=== PATIENT | female | born 1975 | race Caucasian/White ===

== ENCOUNTER 2018-05-19 12:44 | Inpatient (IN) ==
[2018-05-19] MEDS ORDERED: fentaNYL Citrate Inj 100 MCG/2 ML Ampul IV.PUSH ONE (13:32)
--- NOTE | 2018-05-19 13:57 | ED ---
HPI General Chief Complaint: Extremity Injury, Lower Stated Complaint: Fall Time Seen by Provider: 05/19/18 12:55 Source: patient and EMS Mode of arrival: EMS Limitations: no limitations History of Present Illness HPI Narrative: Patient is a 42-year-old female, past medical history significant for previous spinal surgery, who [place] the beach. She was skimboarding at the beach this morning when she slipped and fell. She fell onto her right hip and has since had extreme pain. She has not been able to walk since. She received a total of 10 mg of morphine en route with EMS and they report stable vital signs. She denies hitting her head, neck , back. She denies LOC. She denies pain outside of her hip/thigh region. complaint: hip injury Onset (ago): minute(s) Type of Injury: blunt Place: street/outdoors Severity: severe Relieving factors: nothing Exacerbating factors: movement Context: fall Other symptoms: none Related Data Home Medications Medication Instructions Recorded Confirmed No Known Home Medications 05/19/18 05/19/18 Allergies Allergy/AdvReac Type Severity Reaction Status Date / Time No Known Allergies Allergy Unverified 05/19/18 12:56 Review of Systems Except as stated in HPI: all other systems reviewed are negative Constitutional Denies frequent falls Eyes Denies blurry vision ENT Denies dizziness Cardiovascular Denies chest pain Respiratory Denies dyspnea Gastrointestinal Denies abdominal pain Genitourinary Denies flank pain Musculoskeletal Denies back pain, Reports deformity and Reports limited range of motion Integumentary/Breasts Denies rash Neurologic Denies numbness and Denies weakness Psychiatric Denies confusion [facility] Surgical History Surgical History Previous back surgery (Acute) Social History Social History Substance History: No History of Abuse Second Hand Smoke Exposure: No Smoking Status: Never smoker How Often Do You Have a Drink Containing Alcohol: Never Recent Travel in [facility] within the Last 8 Weeks: No Recent Out of Country Travel within the Last 8 Weeks: No Immunization History Tetanus Immunization: Unsure Hx Influenza Vaccine This Season: No Exam Narrative Exam Narrative: GENERAL: Patient lying on bed with right hip and knee flexed, abducted with internal rotation. Foot is being held up in the air with a sheet tied to an IV pole. SKIN: Focused skin assessment warm/dry. No lesions. HEAD: Atraumatic. Normocephalic. EYES: Pupils equal and round. No scleral icterus. No injection or drainage. ENT: No nasal bleeding or discharge. Mucous membranes pink and moist. NECK: Trachea midline. No JVD. CARDIOVASCULAR: Regular rate and rhythm. No murmur appreciated. Intact peripheral pulses RESPIRATORY: No accessory muscle use. Clear to auscultation. Breath sounds equal bilaterally. GASTROINTESTINAL: Abdomen soft, non-tender, nondistended. Hepatic and splenic margins not palpable. MUSCULOSKELETAL: No clubbing. No cyanosis. No edema. Deformity of the R hip/ thigh NEUROLOGICAL: Awake and alert. No obvious cranial nerve deficits. Able to wiggle toes. Normal speech. PSYCHIATRIC: Appropriate mood and affect; insight and judgment normal. Procedures Orthopedic Fracture Reduction Fracture #1: Time Out Performed: Yes Side: right Fracture Reduction Location: femur Analgesia: other (IV narcotic) Technique: direct manipulation Post Reduction X-rays Demonstrate: acceptable reduction Post-Reduction Neuro Exam: intact Post-Reduction Vascular Exam: intact Splint Applied: No (But placed in traction) Patient Tolerated Procedure: well Additional Comments: Procedure done with educational technician at bedside Course Hospital Course: Patient is a 42-year-old female who presents status post falling off a skim board at the beach. She describes excruciating pain of the right hip/thigh. Portable x-ray obtained shortly after arrival which shows a fracture of the right femur shaft. Orthopedic surgery and trauma surgery were then called. Reevaluation(s) Reevaluation #1: Patient states that she is starting to feel better but does have some continued pain. Time: 14:15 Reevaluation #2: Patient states her pain has improved. Orthopedic surgery asked that we place her in traction and obtain full length femur xrays. Dilaudid has been ordered for pain relief. Time: 15:03 Consultations Consultation #1: I spoke with the trauma surgeon whom recommends that the patient be admitted to his service if they must be admitted today. Time: 13:44 Consultation #2: Orthopedic surgeon oil exploration engineer, Dr Newman was paged several times, with no return phone call. The ED geotechnicial properties technician was able to get in touch with the orthopedic surgery service. They asked that we place her in traction and obtain full length femur xrays. On their review (again, through the geotechnicial properties technician's contact) they recommended admission with surgery tomorrow. Time: 15:03 Initial Documented Vital Signs Temperature 98.0 F 05/19/18 12:57 Pulse Rate 74 05/19/18 12:57 Respiratory Rate 20 05/19/18 12:57 Blood Pressure 132/83 05/19/18 12:57 Pulse Oximetry 98 05/19/18 12:57 Last Documented Vital Signs Temperature 98.0 F 05/19/18 12:57 Pulse Rate 60 05/19/18 16:00 Respiratory Rate 14 05/19/18 16:21 Blood Pressure 95/60 L 05/19/18 16:00 Pulse Oximetry 100 05/19/18 16:00 Medical Decision Making MDM Narrative Medical decision making narrative: Patient is a 42-year-old female, past medical history significant for previous spinal surgery, who presents with complaint of right hipthigh pain after she fell from a skateboard. She has deformity on exam. X-ray showed femur fracture. The hvac refrigeration technician spoke with orthopedic surgery whom asked that we reduce her, place her in traction, and obtain further films. She has been successfully reduced, and placed in traction. Differential Diagnosis Differential Diagnosis: Differential diagnosis includes but is not limited to hip dislocation, hip fracture, pelvic fracture, contusion. Medical Records Medical records reviewed: Yes I reviewed the patient's medical records. Lab Data Lab results reviewed: Yes I reviewed the patient's lab results. Lab results narrative: Labs unremarkable. Result diagrams: 05/19/18 14:00 05/19/18 14:00 Lab Results 05/19/18 05/19/18 05/19/18 Range/Units 14:00 14:00 14:00 WBC 8.7 (4.0-11.0) th/mm3 RBC 4.00 (4.00-5.30) mil/mm3 Hgb 12.5 (11.6-15.3) gm/dL Hct 37.2 (35.0-46.0) % MCV 92.8 (80.0-100.0) fL MCH 31.2 (27.0-34.0) pg MCHC 33.6 (32.0-36.0) % RDW 13.2 (11.6-17.2) % Plt Count 217 (150-450) th/mm3 MPV 9.9 (7.0-11.0) fL PT 11.0 (9.8-11.6) sec INR 1.1 Ratio APTT 21.7 L (24.3-30.1) sec Sodium 140 (136-145) meq/L Potassium 3.8 (3.5-5.1) meq/L Chloride 108 H (98-107) meq/L Carbon Dioxide 23.9 (21.0-32.0) meq/L Anion Gap 8 (5-15) meq/L BUN 15 (7-18) mg/dL Creatinine 0.87 (0.50-1.00) mg/dL Estimated GFR 71 L (>89) mL/min Random Glucose 105 (74-106) mg/dL Calcium 8.7 (8.5-10.1) mg/dL Imaging Data Attestation: I personally reviewed and interpreted this imaging study as follows : My impression: Right femoral shaft fracture with significant displacement. Radiologist's impression: Pelvis X-Ray 05/19/18 13:03 CONCLUSION: Complete light proximal femoral fracture probably intertrochanteric or below the intertrochanteric line with almost 90 degree of varus angulation. Femur X-Ray 05/19/18 15:21 CONCLUSION: Complete comminuted fracture below the intertrochanteric line on the right proximal femur. Discharge Plan Discharge Disposition Patient Disposition: 30 Still Patient Discharge Condition Condition: Stable Discharge Details Diagnosis: Fracture of femur Physicians Team ED Provider: Rupali Campbell Primary Care Provider: Primary Care Kiesha Cueto Attending Provider: Crow Hamilton Discharge Interventions Interventions: Vital Signs Last Done: 05/19/18 16:00 Status ED Status: Admitted Patient
[2018-05-19] MEDS ORDERED: Morphine Inj 4 MG/ML Vial IV.PUSH ONE (14:14)
--- NOTE | 2018-05-19 14:14 | XR ---
EXAM DATE: 05/19/2018 1:55 PM EDT AGE/SEX: 42 years / Female INDICATIONS: Right hip pain after falling off a hover board today. CLINICAL DATA: This is the patient's initial encounter. Patient reports that signs and symptoms have been present for 1 day and indicates a pain score of 10/10. MEDICAL/SURGICAL HISTORY: None. None. COMPARISON: No prior exams available for comparison. FINDINGS: There is a complete fracture of the right femur with almost 90 degrees of varus angulation and the ex act location and extent of the fracture is difficult to ascertain due to underpenetration and signifi cant soft tissue density may represent a large hematoma. CONCLUSION: Complete light proximal femoral fracture probably intertrochanteric or below the intertrochanteric li ne with almost 90 degree of varus angulation. Electronically signed by: Kenzie Sims MD 05/19/2018 2:13 PM EDT
[2018-05-19 14:18] LABS: Hematocrit 37.2 % (35.0-46.0); Hemoglobin 12.5 gm/dL (11.6-15.3); Mean Corpuscular HGB Conc 33.6 % (32.0-36.0); Mean Corpuscular Hemoglobin 31.2 pg (27.0-34.0); Mean Corpuscular Volume 92.8 fL (80.0-100.0); Mean Platelet Volume 9.9 fL (7.0-11.0); Platelet Count 217 th/mm3 (150-450); Red Cell Distribution Width 13.2 % (11.6-17.2); White Blood Count 8.7 th/mm3 (4.0-11.0)
[2018-05-19 14:30] LABS: Activated Partial Thrombo Time 21.7 sec (24.3-30.1); INR 1.1 Ratio
[2018-05-19 14:35] LABS: Calcium 8.7 mg/dL (8.5-10.1); Carbon Dioxide 23.9 meq/L (21.0-32.0); Potassium 3.8 meq/L (3.5-5.1)
[2018-05-19] MEDS ORDERED: HYDROmorphone PF Inj 1 MG/ML Ampul IV.PUSH ONE (14:58)
[2018-05-19] MEDS ORDERED: HYDROmorphone PF Inj 2 MG/ML Vial ONE (15:01)
[2018-05-19] MEDS ORDERED: Bisacodyl 10 MG Supp RECTAL PRN (16:07)
[2018-05-19] MEDS ORDERED: Post-op Orders (for Pharmacy) OTHER ONE (16:07)
[2018-05-19] MEDS ORDERED: Naloxone Inj 0.4 MG/ML Vial IV.PUSH PRN (16:07)
[2018-05-19] MEDS ORDERED: Enoxaparin Inj 40 MG/0.4 ML Syringe SQ SCH (16:15)
[2018-05-19] MEDS ORDERED: Sod Chloride 0.9% Inj 1,000 ML IV.CONT SCH (16:15)
--- NOTE | 2018-05-19 16:21 | MH ---
cc: Crow Hamilton MD DATE OF ADMISSION: 05/19/2018 HISTORY OF PRESENT ILLNESS: This 42-year-old female was on the beach on some sort of a surfboard and broke her right femur. She was transferred to our institution, worked up in the emergency room and found to have midshaft closed femur fracture; hence, the admission. PAST MEDICAL AND SURGICAL HISTORY: Severe kyphoscoliosis, for which the patient had Banuelos rods placed as a child. MEDICATIONS: No medications. ALLERGIES: NO ALLERGIES AT THIS TIME. PHYSICAL EXAMINATION: GENERAL: Reveals a pleasant 42-year-old lady in no acute distress. HEENT: Normocephalic. No trauma to the head. Pupils equal, reactive. Extraocular muscles intact. NECK: Supple. Bilateral carotid pulses. No bruit. CHEST: Clear with bilateral breath sounds. HEART: Regular rate and rhythm. ABDOMEN: Soft, active bowel sounds. No rebound, no guarding, no masses. BACK: Normal. The patient has scars from previous surgery. EXTREMITIES: The patient has bilateral femoral, popliteal, dorsalis pedis and posterior tibial pulses; bilateral brachial, ulnar and radial pulses. IMPRESSION AND PLAN: A mid shaft femur fracture, which is closed and partially reduced by suspension, to the operating room today for femur fracture fixation. The patient will probably stay in the hospital for a few days. MD CHRISTOPHER Alvarez/MEHRAN , 04:07 PM , 04:21 PM
--- NOTE | 2018-05-19 16:31 | XR ---
EXAM DATE: 05/19/2018 4:00 PM EDT AGE/SEX: 42 years / Female INDICATIONS: Patient complains of right hip/femur pain. CLINICAL DATA: This is the patient's initial encounter. Patient reports that signs and symptoms have been present for 1 day and indicates a pain score of 9/10. MEDICAL/SURGICAL HISTORY: None. None. COMPARISON: No prior exams available for comparison. FINDINGS: There is a complete fracture of the right proximal femur appears to be under the intertrochanteric li ne with avulsed fragments medially and there is superior riding of the distal fragment and varus angu lation. CONCLUSION: Complete comminuted fracture below the intertrochanteric line on the right proximal femur. Electronically signed by: Kenzie Sims MD 05/19/2018 4:30 PM EDT
[2018-05-19] MEDS: Senna/Docusate Sodium 8.6/50 MG Tablet PO SCH (21:20)
[2018-05-19] MEDS: HYDROmorphone PF Inj 2 MG/ML Vial IV.PUSH PRN (23:45)
[2018-05-19] MEDS: Sod Chloride 0.9% Inj 1,000 ML IV.CONT SCH (23:49)
[2018-05-20] MEDS ORDERED: Metoprolol Tartrate 25 MG Tablet PO SCH (03:15)
[2018-05-20] MEDS ORDERED: Chlorhexidine Gluconate 2% 1 Pack (2 Cloths) TOPICAL SCH (03:15)
[2018-05-20] MEDS: Sod Chloride 0.9% Inj 1,000 ML IV.CONT SCH (03:30)
[2018-05-20] MEDS: HYDROmorphone PF Inj 2 MG/ML Vial IV.PUSH PRN (03:55)
[2018-05-20] MEDS ORDERED: Sodium Chlor 0.9% Inj 500 ML IV.SIG SCH (04:00)
[2018-05-20 06:31] LABS: Baso % (Auto) 0.4 % (0.0-2.0); Eos % (Auto) 0.4 % (0.0-4.0); Hematocrit 32.8 % (35.0-46.0); Hemoglobin 11.1 gm/dL (11.6-15.3); Lymph # (Auto) 1.3 th/mm3 (1.0-4.8); Mean Corpuscular HGB Conc 33.9 % (32.0-36.0); Mean Corpuscular Hemoglobin 31.2 pg (27.0-34.0); Mean Corpuscular Volume 91.9 fL (80.0-100.0); Mean Platelet Volume 9.7 fL (7.0-11.0); Mono # (Auto) 0.7 th/mm3 (0.0-0.9); Mono % (Auto) 8.1 % (0.0-8.0); Neut # (Auto) 7.1 th/mm3 (1.8-7.7); Neut % (Auto) 77.1 % (16.0-70.0); Platelet Count 176 th/mm3 (150-450); Red Blood Count 3.57 mil/mm3 (4.00-5.30); White Blood Count 9.2 th/mm3 (4.0-11.0)
[2018-05-20 06:51] LABS: Calcium 8.3 mg/dL (8.5-10.1); Carbon Dioxide 23.8 meq/L (21.0-32.0); Potassium 3.8 meq/L (3.5-5.1)
--- NOTE | 2018-05-20 06:56 | P.PNOP ---
Subjective Interval history: Visiting with family from [place]. Tried to use sun skin board. She had a slip and fall and had significant right hip injury and pain. No other complaints Physical Exam Vital signs: Vital Signs 05/19/18 12:57 05/19/18 14:00 05/19/18 14:25 Temperature 98.0 F Pulse Rate 74 77 Respiratory Rate 20 18 14 Blood Pressure 132/83 125/73 Pulse Oximetry 98 100 05/19/18 15:00 05/19/18 16:00 05/19/18 16:21 Temperature Pulse Rate 82 60 Respiratory Rate 20 21 14 Blood Pressure 134/75 95/60 L Pulse Oximetry 100 100 05/19/18 17:00 05/19/18 19:08 05/19/18 23:38 Temperature 98.1 F 98.5 F Pulse Rate 63 75 73 Respiratory Rate 16 18 18 Blood Pressure 116/65 139/81 124/78 Pulse Oximetry 100 100 98 05/20/18 04:14 Temperature 99.2 F Pulse Rate 75 Respiratory Rate 17 Blood Pressure 105/61 Pulse Oximetry 97 Intake & Output 05/19/18 05/19/18 05/20/18 06:59 18:59 06:59 Intake Total 360 / 360 Output Total 450 / 450 Balance -90 / -90 Weight 52.16 kg 52.16 kg Intake: Oral 360 / 360 Output: Urine 450 / 450 Stool 0 / 0 Other: Date of Last Bowel Movement 05/18/18 05/18/18 Weight On Admission 52.16 kg Narrative: Right lower extremity: Pain to palpation of hip. No pain in his knee or ankle. She is in Cummings's traction with active dorsiflexion plantar flexion foot. She has intact distal pulses and sensation Left lower extremity: Full range of motion neurovascularly intact Bilateral upper extremities: Full range of motion and neurovascularly intact Results - Labs CBC & Chem 7: 05/20/18 05:28 05/20/18 05:28 Laboratory Results - last 24 hr 05/19/18 05/19/18 05/19/18 14:00 14:00 14:00 WBC 8.7 RBC 4.00 Hgb 12.5 Hct 37.2 MCV 92.8 MCH 31.2 MCHC 33.6 RDW 13.2 Plt Count 217 MPV 9.9 Neut % (Auto) Lymph % (Auto) [place] % (Auto) Eos % (Auto) Baso % (Auto) Neut # (Auto) Lymph # (Auto) [place] # (Auto) Eos # (Auto) Baso # (Auto) WBC Differential Differential Comment PT 11.0 INR 1.1 APTT 21.7 L Sodium 140 Potassium 3.8 Chloride 108 H Carbon Dioxide 23.9 Anion Gap 8 BUN 15 Creatinine 0.87 Estimated GFR 71 L Random Glucose 105 Calcium 8.7 05/20/18 05/20/18 05:28 05:28 WBC 9.2 RBC 3.57 L Hgb 11.1 L Hct 32.8 L MCV 91.9 MCH 31.2 MCHC 33.9 RDW 13.0 Plt Count 176 MPV 9.7 Neut % (Auto) 77.1 H Lymph % (Auto) 14.0 [place] % (Auto) 8.1 H Eos % (Auto) 0.4 Baso % (Auto) 0.4 Neut # (Auto) 7.1 Lymph # (Auto) 1.3 [place] # (Auto) 0.7 Eos # (Auto) 0.0 Baso # (Auto) 0.0 WBC Differential . Differential Comment Auto diff final PT INR APTT Sodium 140 Potassium 3.8 Chloride 106 Carbon Dioxide 23.8 Anion Gap 10 BUN 14 Creatinine 0.73 Estimated GFR 87 L Random Glucose 94 Calcium 8.3 L - Imaging Impressions Pelvis X-Ray 05/19/18 13:03 CONCLUSION: Complete light proximal femoral fracture probably intertrochanteric or below the intertrochanteric line with almost 90 degree of varus angulation. Femur X-Ray 05/19/18 15:21 CONCLUSION: Complete comminuted fracture below the intertrochanteric line on the right proximal femur. Assessment and Plan - Assessment and Plan Right subtrochanteric femur fracture. N.p.o. Surgery this morning for intramedullary nail fixation. Signed consents.
--- NOTE | 2018-05-20 07:22 | MB ---
cc: Allan Newman MD DATE: 05/20/2018 REASON FOR CONSULTATION: Right proximal femur fracture. HISTORY OF PRESENT ILLNESS: Ms. Nichols is a 42-year-old female who is visiting family. She was at the beach, using a skim board. She lost her balance and fell. She landed on her right side. She had immediate right hip and leg pain. She was unable to stand or ambulate. She presented to the Emergency Room, where x-rays revealed a displaced right proximal femur fracture. She is currently awake and on the orthopedic floor. Her only complaint is her right leg. Pain is worse with movement and is improved with rest. She denies dizziness, syncope or loss of consciousness. She describes a mechanical fall. PAST MEDICAL HISTORY, ILLNESSES: Scoliosis. MEDICATIONS: No home medications. ALLERGIES: NONE. PAST SURGICAL HISTORY: Placement of Banuelos rods in her spine for scoliosis as a child. SOCIAL HISTORY: The patient lives in [place]. She is here visiting on vacation. She denies alcohol, tobacco or drug abuse. FAMILY HISTORY: Noncontributory. REVIEW OF SYSTEMS: The patient denies fevers, chills, weight loss, headache, visual changes, hearing loss, chest pain, palpitations, shortness of breath, nausea, vomiting, urinary changes, diarrhea, bowel changes, neck pain, back pain, skin rashes, weakness, numbness of extremities, anxiety or depression. She complains of right hip pain. The pain is worse with movement. LABORATORY DATA: The patient has a white blood cell count of 9.2, hematocrit of 32.8, platelet count of 176, INR of 1.1, potassium of 3.8. X-RAYS: X-rays of right hip and femur were reviewed. X-rays reveal a displaced right hip intertrochanteric fracture. PHYSICAL EXAMINATION: GENERAL: The patient is a pleasant 42-year-old female. She is awake and alert. She is alert and oriented x3. She is in no acute distress. She appears well-developed and well-nourished. VITAL SIGNS: Temperature 99.2, pulse 75, respirations 17, blood pressure 105/61, O2 saturations 97% on room air. HEAD: The patient is normocephalic. Pupils are equal. NECK: Supple, nontender. Trachea is in the midline. ABDOMEN: Soft, nontender, nondistended. EXTREMITIES: Examination of bilateral lower extremities reveals no significant pain. Examination of left leg reveals no pain with hip, knee or ankle motion. Skin is intact. Dorsalis pedis pulses palpable. Sensation is intact. Examination of right leg reveals pain with any hip motion. Her right leg is shortened and externally rotated. She has no tenderness of her knee, tibia or ankle. Skin is intact. Dorsalis pedis pulses palpable. IMPRESSION: Displaced right hip intertrochanteric fracture secondary to fall at the beach. PLAN: Treatment options were discussed with the patient. At this point, I would recommend right hip reduction with intramedullary nail fixation. Risks of surgery include bleeding, infection, injuries to arteries, nerves and blood vessels; nonunion, malunion, painful hardware, as well as medical complications including blood clot, stroke, heart attack and . All questions were answered. Will plan on surgery today. A mid-level provider in my office, nurse practitioner or PA, may see this patient on a follow-up basis and continue to implement the objective of this plan including: Starting or adjusting medications, injections of muscle, tendon, bursa or joints, cast application, orthotic or brace application, physical therapy, further radiographic studies including x-ray, MRI, CT, ultrasounds or bone scan, vascular studies, neurologic studies, or other specialist consultations, and proceeding with surgical management as appropriate. MD JACK Jorgensen/BELKYS , 06:59 AM , 07:20 AM
[2018-05-20] MEDS ORDERED: Bupivacaine/Epinephrine Inj 0.25% 50 ML Vial ONE (07:38)
[2018-05-20] MEDS ORDERED: Morphine Inj 4 MG/ML Vial IV.PUSH PRN (08:40)
[2018-05-20] MEDS ORDERED: Post-op Orders (for Pharmacy) OTHER STA (08:40)
--- NOTE | 2018-05-20 08:47 | P.OP ---
- Preoperative Diagnosis (1) Closed intertrochanteric fracture of right hip Date of procedure: 05/20/18 Procedure: Reduction and intramedullary nail fixation right intertrochanteric femur fracture Anesthesia: GETA Surgeon: Allan Rodriguez MD Braille Proofreader: SHILO Garcia PA-C The surgical procedure was assisted by my physician religious assistant. My P.A. presence was necessary throughout this case for the manipulation and positioning of the surgical extremity. My P.A. was assisting me throughout the duration of this procedure. The skill set of a physician religious assistant was medically necessary to complete this procedure. During the surgical case the surgical supply assistant was working at the back table and the physician religious assistant was directly assisting me. Operation and Findings: Implants used: [9]mm x [360]mm troch nail Plan of activity: 50% weightbearing right leg Patient was seen and evaluated preoperatively. The patient has significant hip pain from proximal femur fracture. The risk and benefits of surgery were discussed in depth with the patient to include bleeding, infection, nonunion, malunion, need for hip replacement, painful hardware, as well as medical competitions including blood clots, stroke, heart attack, and . Informed consent was obtained. Operative site was marked. Patient was brought to the operating room and placed on fracture table. IV sedation was administered by anesthesiologist. Timeout procedure was performed. Hip and leg were prepped with alcohol followed by DuraPrep and draped in the usual sterile fashion. IV antibiotics were given prior to incision. Procedure began with reduction of fracture. Traction was applied. The leg was manipulated to achieve reduction. Multiple attempts were made reduction. I was unable to achieve appropriate reduction. A 4 inch incision was made lateral to the intertrochanteric region. Iliotibial band was split in line with fibers. Vastus lateralis muscle was elevated anteriorly. Fracture site was visualized. Fracture is now mainly reduced. Fracture keyed in excellent alignment. Using appropriate cable passer, a cable was passed around the fracture site. The fracture was gently compressed with the cable. The cable was tensioned, crimped, and cut appropriately. Excellent reduction was achieved. Fluoroscopy was used to confirm reduction. A three inch incision was made proximal to the trochanter. Subcutaneous tissue was dissected bluntly. Guidepin was placed at the tip of the trochanter and advanced into the femoral canal. Fluoroscopy confirmed appropriate guidepin placement. A opening reamer was placed over the guidepin. A long ball tipped guide pin was now placed down the femoral canal into the center of the distal femur. The nail length was now measured. Fluoroscopy confirmed appropriate guidepin placement. Flexible reamers were now passed over the guidepin to ream the intramedullary canal. The nail was attached to the insertion handle. Nail was now placed over the guidepin into the femoral canal. Fluoroscopy confirmed appropriate nail placement. A second incision was made over the lateral thigh. Cannulas were placed through the insertion handle down to the femur. Guidepin was now placed through the femoral nail into the center of the femoral head. Fluoroscopy confirmed appropriate guidepin placement. Screw length was measured. Cannulated drill was placed over the guidepin. Appropriate length lag screw was now placed. Traction was released and compression was applied. The set screw was now tightened in dynamic mode. Next, using perfect table mountain technique two distal interlocking screws were placed. Screw holes were predrilled and screw lengths were measured. Final fluoroscopy revealed well aligned fracture with well-placed hardware. Incision was closed with 3-0 Vicryl and mayela. Sterile dressings were applied. Patient was awakened and transferred to recovery room.
[2018-05-20] MEDS ORDERED: fentaNYL Citrate Inj 100 MCG/2 ML Ampul ONE (09:03)
[2018-05-20] MEDS ORDERED: *morphine SULFATE 10 MG/ML PERIprocedure ONLY ONE ×2 (09:16→09:31)
[2018-05-20] MEDS: Senna/Docusate Sodium 8.6/50 MG Tablet PO SCH ×2 (10:49→20:13)
[2018-05-20] MEDS: Calcium/Vitamin D 250/125 MG Tablet PO SCH ×3 (10:49→19:18)
[2018-05-20] MEDS ORDERED: Phenylephrine/NS 1000 MCG/10ML Syringe IV.PUSH ONE (12:00)
[2018-05-20] MEDS ORDERED: Sodium Chlor 0.9% Inj 250 ML IV.SIG ONE (12:00)
[2018-05-20] MEDS ORDERED: Glycopyrrolate Inj 1 MG/5 ML Syringe IV.PUSH ONE (12:00)
[2018-05-20] MEDS ORDERED: Lidocaine PF 1% Inj 5 ML Syringe INFILTRATN ONE (12:00)
[2018-05-20] MEDS ORDERED: Neostigmine Inj 5 MG/5 ML Syringe IV.PUSH ONE (12:00)
--- NOTE | 2018-05-20 13:02 | P.PNGS ---
Subjective Interval history: OR today for right femur repair Physical Exam Vital signs: Vital Signs 05/19/18 14:00 05/19/18 14:25 05/19/18 15:00 Temperature Pulse Rate 77 82 Respiratory Rate 18 14 20 Blood Pressure 125/73 134/75 Pulse Oximetry 100 100 05/19/18 16:00 05/19/18 16:21 05/19/18 17:00 Temperature Pulse Rate 60 63 Respiratory Rate 21 14 16 Blood Pressure 95/60 L 116/65 Pulse Oximetry 100 100 05/19/18 19:08 05/19/18 23:38 05/20/18 04:14 Temperature 98.1 F 98.5 F 99.2 F Pulse Rate 75 73 75 Respiratory Rate 18 18 17 Blood Pressure 139/81 124/78 105/61 Pulse Oximetry 100 98 97 05/20/18 08:57 05/20/18 09:00 05/20/18 09:15 Temperature 97.6 F Pulse Rate 96 H 82 75 Respiratory Rate 17 15 15 Blood Pressure 116/64 107/64 111/63 Pulse Oximetry 96 96 96 05/20/18 09:30 05/20/18 09:45 Temperature 97.6 F Pulse Rate 69 69 Respiratory Rate 14 17 Blood Pressure 115/68 111/63 Pulse Oximetry 97 95 Intake & Output 05/19/18 05/20/18 05/20/18 18:59 06:59 18:59 Intake Total 360 / 360 1000 / 1000 Output Total 450 / 450 300 / 300 Balance -90 / -90 700 / 700 Weight 52.16 kg 52.16 kg Intake: Oral 360 / 360 Anesthesia Amount 1000 / 1000 Output: Urine 450 / 450 Stool 0 / 0 Estimated Blood Loss 100 / 100 Urine Amount (Catheter) 200 / 200 Indwelling Urethral Catheter 200 / 200 Other: Date of Last Bowel Movement 05/18/18 05/18/18 Weight On Admission 52.16 kg Narrative: GENERAL: 42 year old well-nourished, well developed female lying in bed. SKIN: Warm and dry. HEAD: Normocephalic. EYES: Pupils equal and round. No scleral icterus. ENT: No nasal bleeding or discharge. Mucous membranes pink and moist. NECK: Trachea midline. No JVD. CARDIOVASCULAR: Regular rate and rhythm. RESPIRATORY: No accessory muscle use. Lungs clear to auscultation. Breath sounds equal bilaterally. GASTROINTESTINAL: Abdomen soft, non-tender, nondistended. + BS. MUSCULOSKELETAL: Extremities without cyanosis, or edema. RLE bucks traction in place. MAEW, + perfused NEUROLOGICAL: Awake and alert. Normal speech. - Urinary Catheter Management Indwelling Urethral Catheter Cath placed during this visit: no Reason for continuing: Other continuation reason Straight Cath placed during this visit: yes, but has since been removed by the nurse Reason for continuing: Not indwelling catheter Insertion date: 05/22/18 Insertion time: 13:00 Removal date: 05/22/18 Removal time: 13:30 Assessment and Plan - Plan [place]: [place] No LOC. INJURIES: RIGHT femur fx PMHx: back surgery (Banuelos rods-scoliosis) 05/19: Right femur reduction 05/19: Right gastelum's traction RIGHT femur fx Orthopedics consulted 05/19: Right femur reduction 05/19: Right gastelum's traction OR today for femur repair AM labs Tele- monitor for s/s of bleeding Pain control Bowel regimen Lovenox OOB-PT/OT Plan of care d/w patient and at bedside. Collaborating Trauma surgeon agrees with plan. Case management consulted to assist with discharge planning.
--- NOTE | 2018-05-20 13:49 | XR ---
EXAM DATE: 05/20/2018 1:47 PM EDT AGE/SEX: 42 years / Female INDICATIONS: Open reduction right femur. CLINICAL DATA: This is the patient's subsequent encounter. Patient reports that signs and symptoms h ave been present for 2 days and indicates a pain score of Nonresponsive. MEDICAL/SURGICAL HISTORY: None. None. COMPARISON: No prior exams available for comparison. FINDINGS: 5 images are recorded digitally in the operating room using C-arm during placement of intramedullary jacqueline and trochanteric nail. There are 2 distal screws and a proximal cerclage wire. CONCLUSION: Intraoperative images. Electronically signed by: Jeremiah Stokes MD 05/20/2018 1:48 PM EDT
--- NOTE | 2018-05-21 06:29 | P.PNOP ---
Subjective Interval history: POD 1 s/p IMN and cable fixation right hip doing well. pain controlled. resting comfortably Physical Exam Vital signs: Vital Signs 05/20/18 08:57 05/20/18 09:00 05/20/18 09:15 Temperature 97.6 F Pulse Rate 96 H 82 75 Respiratory Rate 17 15 15 Blood Pressure 116/64 107/64 111/63 Pulse Oximetry 96 96 96 05/20/18 09:30 05/20/18 09:45 05/20/18 12:00 Temperature 97.6 F 97.3 F L Pulse Rate 69 69 90 Respiratory Rate 14 17 16 Blood Pressure 115/68 111/63 104/53 L Pulse Oximetry 97 95 94 L 05/20/18 16:00 05/20/18 20:00 05/21/18 00:00 Temperature 98.8 F 97.4 F L 99.7 F H Pulse Rate 73 90 89 Respiratory Rate 16 16 18 Blood Pressure 105/56 L 111/65 102/55 L Pulse Oximetry 98 99 99 05/21/18 04:00 Temperature 98.3 F Pulse Rate 79 Respiratory Rate 16 Blood Pressure 106/55 L Pulse Oximetry 98 Intake & Output 05/20/18 05/20/18 05/21/18 06:59 18:59 06:59 Intake Total 360 / 360 1100 / 1100 100 / 100 Output Total 450 / 450 600 / 600 1000 / 1000 Balance -90 / -90 500 / 500 -900 / -900 Weight 52.16 kg 59.8 kg Intake: IV 100 / 100 100 / 100 Ancef Inj 1,000 MG In NS Inj 100 / 100 100 / 100 100 ML @ 200 mls/hr IV.SIG Q8H [facility] Rx#:[id number] Oral 360 / 360 Anesthesia Amount 1000 / 1000 Output: Urine 450 / 450 Stool 0 / 0 Estimated Blood Loss 100 / 100 Urine Amount (Catheter) 500 / 500 1000 / 1000 Indwelling Urethral Catheter 500 / 500 1000 / 1000 Other: Date of Last Bowel Movement 05/18/18 05/19/18 05/18/18 Narrative: RLE: dressings clean and dry. intact. nvi distally - Urinary Catheter Management Indwelling Urethral Catheter Cath placed during this visit: yes, but has since been removed by the nurse Reason for continuing: Decision to DC catheter Removal date: 05/21/18 Removal time: 06:23 Results - Labs CBC & Chem 7: 05/20/18 05:28 05/20/18 05:28 Laboratory Results - last 24 hr 05/20/18 05/20/18 05/20/18 05:28 05:28 06:03 WBC 9.2 RBC 3.57 L Hgb 11.1 L Hct 32.8 L MCV 91.9 MCH 31.2 MCHC 33.9 RDW 13.0 Plt Count 176 MPV 9.7 Neut % (Auto) 77.1 H Lymph % (Auto) 14.0 [place] % (Auto) 8.1 H Eos % (Auto) 0.4 Baso % (Auto) 0.4 Neut # (Auto) 7.1 Lymph # (Auto) 1.3 [place] # (Auto) 0.7 Eos # (Auto) 0.0 Baso # (Auto) 0.0 WBC Differential . Differential Comment Auto diff final Sodium 140 Potassium 3.8 Chloride 106 Carbon Dioxide 23.8 Anion Gap 10 BUN 14 Creatinine 0.73 Estimated GFR 87 L Random Glucose 94 Calcium 8.3 L Blood Type O Positive Blood Type Recheck Required Antibody Screen Negative - Imaging Impressions Femur X-Ray 05/20/18 00:00 CONCLUSION: Intraoperative images. Assessment and Plan - Assessment and Plan 1) Right Subtrochanteric Femur fx s/p IMN and cable fixation - POD 1 -50%WB -daily dressing changes -DVT prophylaxis -CM for DC planning -work with therapy -patient from [place]. Advised not to fly back for at least one week -will follow up with Ortho back at home in [place] -ortho clear for DC once ambulating safely
--- NOTE | 2018-05-21 06:30 | P.DCO ---
- Physical Therapy Physical Therapy: Gait training Hip: Hip fracture, Protocol: Right Right Lower Extremity Weight Bearing: Partial weight bearing 50% - Nursing Dressing changes: Daily dressing change, Xeroform, Coverderm/Primapore - Certification Need for Home Health services: I have seen patient Gay Nichols on 05/21/18. My clinical findings support the need for the requested home health care services because: Need for Home Health Services: Limited mobility due to disease progression Homebound Certification: I certify that my clinical findings support that this patient is homebound because: Homebound Certification: Post-op weakness
[2018-05-21 06:57] LABS: Hematocrit 27.3 % (35.0-46.0); Hemoglobin 9.3 gm/dL (11.6-15.3)
[2018-05-21] MEDS: Enoxaparin Inj 40 MG/0.4 ML Syringe SQ SCH (08:11)
[2018-05-21] MEDS: Calcium/Vitamin D 250/125 MG Tablet PO SCH ×3 (08:11→18:46)
[2018-05-21] MEDS: Senna/Docusate Sodium 8.6/50 MG Tablet PO SCH ×2 (08:11→21:50)
--- NOTE | 2018-05-21 11:36 | P.PNGS ---
<Feryn Heredia M - Last Filed: 05/21/18 11:47> Subjective Interval history: Pain controlled Hgb 9.1 today Got OOB with PT yesterday Physical Exam Vital signs: Vital Signs 05/20/18 12:00 05/20/18 16:00 05/20/18 20:00 Temperature 97.3 F L 98.8 F 97.4 F L Pulse Rate 90 73 90 Respiratory Rate 16 16 16 Blood Pressure 104/53 L 105/56 L 111/65 Pulse Oximetry 94 L 98 99 05/21/18 00:00 05/21/18 04:00 05/21/18 08:00 Temperature 99.7 F H 98.3 F 98.7 F Pulse Rate 89 79 84 Respiratory Rate 18 16 20 Blood Pressure 102/55 L 106/55 L 108/58 L Pulse Oximetry 99 98 96 Intake & Output 05/20/18 05/21/18 05/21/18 18:59 06:59 18:59 Intake Total 1100 / 1100 560 / 560 1200 / 1200 Output Total 600 / 600 1000 / 1000 360 / 360 Balance 500 / 500 -440 / -440 840 / 840 Weight 59.8 kg Intake: IV 100 / 100 200 / 200 1000 / 1000 LR 1000 mL Inj 1,000 ML @ 50 1000 / 1000 mls/hr IV.CONT .Q20H [facility] Rx#: [id number] Ancef Inj 1,000 MG In NS Inj 100 / 100 200 / 200 100 ML @ 200 mls/hr IV.SIG Q8H [facility] Rx#:[id number] Oral 360 / 360 200 / 200 Anesthesia Amount 1000 / 1000 Output: Urine 360 / 360 Estimated Blood Loss 100 / 100 Urine Amount (Catheter) 500 / 500 1000 / 1000 Indwelling Urethral Catheter 500 / 500 1000 / 1000 Other: Date of Last Bowel Movement 05/19/18 05/18/18 05/18/18 Narrative: GENERAL: 42 year old well-nourished, well developed female lying in bed. SKIN: Warm and dry. HEAD: Normocephalic. EYES: Pupils equal and round. No scleral icterus. ENT: No nasal bleeding or discharge. Mucous membranes pink and moist. NECK: Trachea midline. No JVD. CARDIOVASCULAR: Regular rate and rhythm. RESPIRATORY: No accessory muscle use. Lungs clear to auscultation. Breath sounds equal bilaterally. GASTROINTESTINAL: Abdomen soft, non-tender, nondistended. + BS. MUSCULOSKELETAL: Extremities without cyanosis, or edema. Right thigh dressing C/ D/I. MAEW, + perfused NEUROLOGICAL: Awake and alert. Normal speech. - Urinary Catheter Management Indwelling Urethral Catheter Cath placed during this visit: yes, but has since been removed by the nurse Reason for continuing: Decision to DC catheter Removal date: 05/21/18 Removal time: 06:23 Assessment and Plan - Plan [place]: [place] standing [place] No LOC. INJURIES: RIGHT femur fx PMHx: back surgery (Banuelos rods-scoliosis) 05/19: Right femur reduction 05/19: Right gastelum's traction 05/20: Reduction and IM nail fixation right intertrochanteric femur fracture RIGHT femur fx Orthopedics consulted 05/19: Right femur reduction 05/19: Right gastelum's traction 05/20: Reduction and IM nail fixation right intertrochanteric femur fracture Pain control Bowel regimen Lovenox OOB-PT/OT Collaborating Trauma surgeon agrees with plan. Case management consulted to assist with discharge planning. Plan to discharge home with home health care tomorrow. <Michael Drake S - Last Filed: 05/23/18 17:00> Physical Exam Vital signs: Intake & Output 05/22/18 05/23/18 05/23/18 18:59 06:59 18:59 Intake Total 720 / 720 Output Total 1600 / 1600 Balance -880 / -880 Intake: Oral 720 / 720 Output: Urine 500 / 500 Urine Amount (Catheter) 1100 / 1100 Straight 1100 / 1100 Other: # Voids 1 2 Date of Last Bowel Movement 05/21/18 - Urinary Catheter Management Indwelling Urethral Catheter Cath placed during this visit: yes, but has since been removed by the nurse Reason for continuing: Decision to DC catheter Removal date: 05/21/18 Removal time: 06:23 Straight Cath placed during this visit: yes, but has since been removed by the nurse Reason for continuing: Not indwelling catheter Insertion date: 05/22/18 Insertion time: 13:00 Removal date: 05/22/18 Removal time: 13:30 Assessment and Plan - Attending Attestation patient seen at bedside s/p orif femur doing better hhc for dc The exam, history, and the medical decision-making described in the above note were completed with the assistance of the mid-level provider. I reviewed and agree with the findings presented. I attest that I had a [id number] encounter with the patient on the same day, and personally performed and documented my assessment and findings in the medical record.
--- NOTE | 2018-05-22 06:41 | P.PNOP ---
Subjective Interval history: POd 2 s/p IMN right hip doing well. out of bed with therapy. pain controlled Physical Exam Vital signs: Vital Signs 05/21/18 08:00 05/21/18 12:00 05/21/18 14:00 Temperature 98.7 F 98.7 F 98.6 F Pulse Rate 84 109 H 94 H Respiratory Rate 20 21 22 Blood Pressure 108/58 L 121/66 126/60 Pulse Oximetry 96 96 98 05/21/18 16:00 05/21/18 20:00 05/22/18 00:00 Temperature 98.6 F 99.3 F 99.3 F Pulse Rate 94 H 92 H 99 H Respiratory Rate 22 20 20 Blood Pressure 126/60 117/61 125/62 Pulse Oximetry 98 100 97 05/22/18 04:00 Temperature 98.7 F Pulse Rate 82 Respiratory Rate 20 Blood Pressure 121/61 Pulse Oximetry 97 Intake & Output 05/21/18 05/21/18 05/22/18 06:59 18:59 06:59 Intake Total 560 / 560 1200 / 1200 860 / 860 Output Total 1000 / 1000 360 / 360 Balance -440 / -440 840 / 840 860 / 860 Weight 59.8 kg 60 kg Intake: IV 200 / 200 1000 / 1000 LR 1000 mL Inj 1,000 ML @ 50 1000 / 1000 mls/hr IV.CONT .Q20H [facility] Rx#: [id number] Ancef Inj 1,000 MG In NS Inj 200 / 200 100 ML @ 200 mls/hr IV.SIG Q8H [facility] Rx#:[id number] Oral 360 / 360 200 / 200 860 / 860 Output: Urine 360 / 360 Urine Amount (Catheter) 1000 / 1000 Indwelling Urethral Catheter 1000 / 1000 Other: # Voids 4 Date of Last Bowel Movement 05/18/18 05/18/18 05/21/18 Narrative: RLE: dressigns clean and dry. intact. nvi. - Urinary Catheter Management Indwelling Urethral Catheter Cath placed during this visit: yes, but has since been removed by the nurse Reason for continuing: Decision to DC catheter Removal date: 05/21/18 Removal time: 06:23 Results - Labs CBC & Chem 7: 05/21/18 06:27 05/20/18 05:28 Laboratory Results - last 24 hr 05/21/18 06:27 Hgb 9.3 L Hct 27.3 L Assessment and Plan - Assessment and Plan 1) Right Subtrochanteric Femur fx s/p IMN and cable fixation - POD 2 -50%WB -daily dressing changes -DVT prophylaxis -CM for DC planning -work with therapy -patient from [place]. Advised not to fly back for at least one week -will follow up with Ortho back at home in [place] -ortho clear for DC once ambulating safely
--- NOTE | 2018-05-22 06:42 | P.DCO ---
- Physical Therapy Physical Therapy: Gait training Hip: Hip fracture, Protocol: Right Right Lower Extremity Weight Bearing: Partial weight bearing 50% - Nursing Dressing changes: Daily dressing change, Xeroform, Coverderm/Primapore - Certification Need for Home Health services: I have seen patient Gay Nichols on 05/22/18. My clinical findings support the need for the requested home health care services because: Need for Home Health Services: Limited mobility due to disease progression Homebound Certification: I certify that my clinical findings support that this patient is homebound because: Homebound Certification: Post-op weakness
[2018-05-22] MEDS ORDERED: Butalbital/APAP/Caff 50/325/40 MG Tablet PO ONE (07:30)
[2018-05-22] MEDS: Calcium/Vitamin D 250/125 MG Tablet PO SCH ×3 (08:03→17:27)
[2018-05-22] MEDS: Senna/Docusate Sodium 8.6/50 MG Tablet PO SCH (08:04)
[2018-05-22] MEDS: Enoxaparin Inj 40 MG/0.4 ML Syringe SQ SCH (08:04)
[2018-05-22 09:00] VITALS: RESP 18
[2018-05-22 09:25] VITALS: O2SAT 100
--- NOTE | 2018-05-22 11:29 | P.DS ---
Date of admission: 05/19/18 14:38 Primary care physician: No Primary Care Physician Brief History from admission: S/P Fall DS: Diagnosis - Discharge Diagnosis (1) Fracture of femur Status: Acute (2) Fall Status: Acute DS: Medications - Discharge Medications Prescriptions: hydrocodone-acetaminophen [[place]] 1 tab PO Q4H PRN #42 tab PRN Reason: Acute Pain rivaroxaban [Xarelto] 10 mg PO DAILY #14 tab DS: Summary Hospital Course: [place]: [place] No LOC. INJURIES: RIGHT femur fx PMHx: back surgery 05/19: Right femur reduction 05/19: Right gastelum's traction 05/20: Reduction and IM nail fixation right intertrochanteric femur fracture RIGHT femur fx Orthopedics consulted, follow-up as outpatient 05/19: Right femur reduction 05/19: Right gastelum's traction 05/20: Reduction and IM nail fixation right intertrochanteric femur fracture Pain control Bowel regimen Home on Xarelto per orthopedics Dressing changes per orthopedics OOB-PT/OT Follow-up with PCP in 1 week Collaborating Trauma surgeon agrees with plan. Case management consulted to assist with discharge planning. Patient is clear from trauma surgery standpoint to safely discharge home with home health care. Rolling walker ordered. - Time Spent with Patient Total time spent providing and/or coordinating discharge services: - Quality: VTE Deep Vein Thrombosis/Pulmonary Embolism Present on Admission: No Exam Vital signs: Vital Signs 05/21/18 12:00 05/21/18 14:00 05/21/18 16:00 Temperature 98.7 F 98.6 F 98.6 F Pulse Rate 109 H 94 H 94 H Respiratory Rate 21 22 22 Blood Pressure 121/66 126/60 126/60 Pulse Oximetry 96 98 98 05/21/18 20:00 05/22/18 00:00 05/22/18 04:00 Temperature 99.3 F 99.3 F 98.7 F Pulse Rate 92 H 99 H 82 Respiratory Rate 20 20 20 Blood Pressure 117/61 125/62 121/61 Pulse Oximetry 100 97 97 05/22/18 08:00 05/22/18 08:33 05/22/18 08:34 Temperature 97.9 F Pulse Rate 77 Respiratory Rate 18 18 18 Blood Pressure 110/71 Pulse Oximetry 100 Intake & Output 0705/22/18 05/22/18 18:59 06:59 18:59 Intake Total 1200 / 1200 860 / 860 Output Total 360 / 360 Balance 840 / 840 860 / 860 Weight 60 kg Intake: IV 1000 / 1000 LR 1000 mL Inj 1,000 ML @ 50 1000 / 1000 mls/hr IV.CONT .Q20H [facility] Rx#: [id number] Oral 200 / 200 860 / 860 Output: Urine 360 / 360 Other: # Voids 4 Date of Last Bowel Movement 05/18/18 05/21/18 05/21/18 Narrative: GENERAL: 42 year old well-nourished, well developed female sitting up in bed. SKIN: Warm and dry. HEAD: Normocephalic. NECK: Trachea midline. No JVD. CARDIOVASCULAR: Regular rate and rhythm. RESPIRATORY: No accessory muscle use. Lungs clear to auscultation. Breath sounds equal bilaterally. GASTROINTESTINAL: Abdomen soft, non-tender, nondistended. + BS. MUSCULOSKELETAL: Extremities without cyanosis, or edema. Right thigh dressing C/ D/I. MAEW, + perfused NEUROLOGICAL: Awake and alert. Normal speech. Results Procedures completed during hospitalization: 05/19: Right femur reduction 05/19: Right gastelum's traction 05/20: Reduction and IM nail fixation right intertrochanteric femur fracture - Impressions ITS Impressions Pelvis X-Ray 05/19/18 13:03 CONCLUSION: Complete light proximal femoral fracture probably intertrochanteric or below the intertrochanteric line with almost 90 degree of varus angulation. Femur X-Ray 05/20/18 00:00 CONCLUSION: Intraoperative images. Discharge Plan - Discharge Disposition Patient Disposition: /Home Health Service - Discharge Condition Condition: Stable - Discharge Order Discharge Orders: Discharge Order (Routine); Ordered 05/22/18 Ordered By: Ferny Heredia Orthopedic Clear for Discharge (Routine); Ordered 05/22/18 Ordered By: Marcello El - Physicians Team Primary Care Provider: Primary Care Physici,No Attending Provider: Crow Hamilton Other Providers: Allan Rodriguez MD ; Venkat Valdez MD ; Nitin Luong MD ; [employer] [facility] ; Neftaly Ambrocio MD ; Rupal Andersen ARNP ; Michael Drake MD ; Sonia Mix MD ; Crow Hamilton MD ; Ferny Heredia ARNP
[2018-05-22 18:32] VITALS: BP 122/72; PULSE 96; TEMP 97.9
== END 2018-05-22 19:38 | disposition home health service (06) ==
LOC: NEPE 12:44 → NEDA 14:38 → N06 18:28
PROVIDERS: ADMIT Surgery; ATTEND Surgery
DX: M41.9 Scoliosis, unspecified; Y93.18 Activity, surfing, windsurfing and boogie boarding; Y92.832 Beach as the place of occurrence of the external cause; W01.0XXA Fall on same level from slipping, tripping and stumbling without subsequent striking against object, initial encounter; S72.141A Displaced intertrochanteric fracture of right femur, initial encounter for closed fracture